=== PATIENT | male | born 1965 | race Caucasian/White ===

== ENCOUNTER 2017-04-08 18:18 | Emergency (ER) | payer OTHER ==
[2017-04-08 18:33] VITALS: BP 149/93; PULSE 112; RESP 20; TEMP 98.1
[2017-04-08] MEDS ORDERED: SODIUM CHLORIDE 0.9% 1,000 ML IV ONE (19:09)
--- NOTE | 2017-04-08 19:44 | ED ---
Extremity Problem HPI - General Source: patient, RN notes reviewed Mode of arrival: ambulatory Limitations: no limitations <Sriram Montejo - Last Filed: 04/08/17 19:40> <Devin Mejia - Last Filed: 04/08/17 20:48> - General Chief complaint: Extremity Problem,Nontraumatic Stated complaint: left hip and foot pain Time Seen by Provider: 04/08/17 18:56 - History of Present Illness Initial comments: This a 51-year-old male presents emergency Department chief complaint of left leg pain. Patient states has been ongoing progressively gotten worse. Patient states she is concerned now as he has numbness to his lower leg primarily below his mid calf into his foot. Patient states that his is very painful to walk on also has noticed some discoloration to his foot. Patient states she was concerned about possible infection or other problems so he went to [facility] and was sent here to rule out blood clot. Patient states he is diabetic but states he only controls with diet states his blood sugar was elevated at [facility] states that he ate just prior to this. Patient states he also smoker but was told by the physician there that he could have some vascular disease caused by his smoking. Patient denies any current back issues no trauma denies any abdominal pain. Patient has no chest pain no dizziness or nausea vomiting. (Sriram Montejo) - Related Data Home Medications Medication Instructions Recorded Confirmed Acetaminophen Tab [Tylenol Tab] 500 mg PO ONCE PRN 04/08/17 04/08/17 Previous Rx's Medication Instructions Recorded Acetaminophen with Codeine 1 tab PO Q4H #30 tab 04/08/17 [Tylenol w/codeine #3] Aspirin 325 mg PO DAILY #30 tab 04/08/17 Allergies Allergy/AdvReac Type Severity Reaction Status Date / Time Penicillins Allergy Unknown Verified 04/08/17 19:11 steroids Allergy Rash/Hives Uncoded 04/08/17 18:34 Review of Systems ROS Other: All systems not noted in ROS Statement are negative. <Sriram Montejo - Last Filed: 04/08/17 19:40> ROS Other: All systems not noted in ROS Statement are negative. <Devin Mejia - Last Filed: 04/08/17 20:48> ROS Statement: Those systems with pertinent positive or pertinent negative responses have been documented in the HPI. Past Medical History Past Medical History: Diabetes Mellitus History of Any Multi-Drug Resistant Organisms: None Reported Past Surgical History: No Surgical Hx Reported Past Psychological History: No Psychological Hx Reported Smoking Status: Current every day smoker Past Alcohol Use History: None Reported Past Drug Use History: None Reported <AdinaSriram fletcher - Last Filed: 04/08/17 19:40> General Exam Limitations: no limitations General appearance: alert, in no apparent distress Head exam: Present: atraumatic, normocephalic, normal inspection Respiratory exam: Present: normal lung sounds bilaterally. Absent: respiratory distress, wheezes, rales, rhonchi, stridor Cardiovascular Exam: Present: regular rate, normal rhythm, normal heart sounds. Absent: systolic murmur, diastolic murmur, rubs, gallop, clicks Extremities exam: Present: other (Left lower extremity there is a faint pedal pulse one plus dorsal. House confirmed with Doppler patient has cord tumors feet slightly cool or to his left leg now proportion both legs have essentially no hair or patient reports this is from being electrocuted there is a non- blanchable erythematous petechial type rash to his feet worse through the digits patient has equal strength of lower extremities bilaterally 5/5) Back exam: Present: full ROM. Absent: tenderness Neurological exam: Present: alert, oriented X3, CN II-XII intact, reflexes normal. Absent: motor sensory deficit Skin exam: Present: warm, dry <NikiaSriram Jillian - Last Filed: 04/08/17 19:40> Medical Decision Making <Sriram Montejo - Last Filed: 04/08/17 19:40> - Lab Data Result diagrams: 04/08/17 19:32 04/08/17 19:32 <Devin Mejia - Last Filed: 04/08/17 20:48> - Medical Decision Making 51-year-old male past medical history of hypertension diabetes and daily smoker. I did evaluate the patient and completed bilateral pulses exam. Patient has normal pulse exam in the right lower extremity. Left lower extremity is palpable femoral, popliteal popliteal, signal at the DP and TP pulses. Patient's symptoms have been worsening over the past few weeks. He has been sleeping with his feet in a position to alleviate some of the symptoms. He does report claudication symptoms in the left buttock for the past 8 months beginning last July. Bilateral lower extremities are warm with cap refill. Case is discussed with the vascular surgeon Dr. Galindo, patient will be given Tylenol 3 for pain control at the patient's request, as well as instructed take full-strength aspirin. He will follow-up with vascular surgery in 3 days. Diagnosis: Chronic limb ischemia with claudication (Devin Mejia) - Lab Data Lab Results 04/08/17 04/08/17 Range/Units 19:32 19:32 WBC 8.5 (3.8-10.6) k/uL RBC 5.58 (4.30-5.90) m/uL Hgb 17.7 H (13.0-17.5) gm/dL Hct 51.6 (39.0-53.0) % MCV 92.6 (80.0-100.0) fL MCH 31.8 (25.0-35.0) pg MCHC 34.4 (31.0-37.0) g/dL RDW 14.4 (11.5-15.5) % Plt Count 279 (150-450) k/uL Neutrophils % 62 % Lymphocytes % 28 % Monocytes % 5 % Eosinophils % 3 % Basophils % 1 % Neutrophils # 5.3 (1.3-7.7) k/uL Lymphocytes # 2.4 (1.0-4.8) k/uL Monocytes # 0.4 (0-1.0) k/uL Eosinophils # 0.2 (0-0.7) k/uL Basophils # 0.0 (0-0.2) k/uL Sodium 136 L (137-145) mmol/L Potassium 5.0 (3.5-5.1) mmol/L Chloride 104 (98-107) mmol/L Carbon Dioxide 21 L (22-30) mmol/L Anion Gap 11 mmol/L BUN 12 (9-20) mg/dL Creatinine 0.61 L (0.66-1.25) mg/dL Est GFR (MDRD) Af Amer >60 (>60 ml/min/1.73 sqM) Est GFR (MDRD) Non-Af >60 (>60 ml/min/1.73 sqM) Glucose 243 H (74-99) mg/dL Calcium 9.3 (8.4-10.2) mg/dL Total Bilirubin 0.7 (0.2-1.3) mg/dL AST 42 (17-59) U/L ALT 50 (21-72) U/L Alkaline Phosphatase 109 (38-126) U/L Total Protein 8.1 (6.3-8.2) g/dL Albumin 4.5 (3.5-5.0) g/dL Acetone, Qual Negative (Negative) Disposition <Sriram Montejo - Last Filed: 04/08/17 19:40> <Devin Mejia - Last Filed: 04/08/17 20:48> Clinical Impression: Claudication in peripheral vascular disease Disposition: HOME SELF-CARE Condition: Good Prescriptions: Acetaminophen with Codeine [Tylenol w/codeine #3] 1 tab PO Q4H #30 tab Aspirin 325 mg PO DAILY #30 tab Referrals: Alexsander Johnson MD [Primary Care Provider] - 1-2 days Lance Galindo MD [STAFF PHYSICIAN] - 1-2 days
[2017-04-08 19:49] LABS: Basophils % (A) 1 %; CH 32.3; CHCM 35.1; Eosinophils # (A) 0.2 k/uL (0-0.7); Eosinophils % (A) 3 %; HCT 51.6 % (39.0-53.0); HDW 2.61; HGB 17.7 gm/dL (13.0-17.5); Luc # (Auto) 0.16; Luc % (Auto) 2; Lymphocytes # (A) 2.4 k/uL (1.0-4.8); Lymphocytes % (A) 28 %; MCH 31.8 pg (25.0-35.0); MCHC 34.4 g/dL (31.0-37.0); MCV 92.6 fL (80.0-100.0); Mean Platelet Volume 8.1; Monocytes # (A) 0.4 k/uL (0-1.0); Monocytes % (A) 5 %; Neutrophils # (A) 5.3 k/uL (1.3-7.7); Neutrophils % (A) 62 %; RBC 5.58 m/uL (4.30-5.90); RDW 14.4 % (11.5-15.5); WBC 8.5 k/uL (3.8-10.6); WBC (Perox) 8.43
[2017-04-08 20:19] LABS: ALT 50 U/L (21-72); AST 42 U/L (17-59); Alkaline Phosphatase 109 U/L (38-126); Anion Gap 11 mmol/L; Blood Urea Nitrogen 12 mg/dL (9-20); Calcium 9.3 mg/dL (8.4-10.2); Carbon Dioxide 21 mmol/L (22-30); Chloride 104 mmol/L (98-107); Glucose 243 mg/dL (74-99); Non-African American GFR(MDRD) >60 (>60 ml/min/1.73 sqM); Sodium 136 mmol/L (137-145); Total Bilirubin 0.7 mg/dL (0.2-1.3); Total Protein 8.1 g/dL (6.3-8.2)
--- NOTE | 2017-04-08 20:27 | US ---
EXAMINATION TYPE: US venous doppler duplex LE LT DATE OF EXAM: 04/08/2017 7:09 PM COMPARISON: NONE CLINICAL HISTORY: Pain. SIDE PERFORMED: Left TECHNIQUE: The lower extremity deep venous system is examined utilizing real time linear array sonog ofelia with graded compression, doppler sonography and color-flow sonography. VESSELS IMAGED: External Iliac Vein (EIV) Common Femoral Vein Deep Femoral Vein Greater Saphenous Vein * Femoral Vein Popliteal Vein Small Saphenous Vein * Proximal Calf Veins (* superficial vessels) Left Leg: Negative for DVT IMPRESSION: Normal exam. No evidence of deep venous thrombosis in the left leg.
== END 2017-04-08 21:10 | disposition home or self-care (01) ==
LOC: EC 18:18
DX: I87.8 Other specified disorders of veins (principal); F17.200 Nicotine dependence, unspecified, uncomplicated; Z88.0 Allergy status to penicillin
CPT/HCPCS: 36415; 80053; 82009; 85025; 96360; 96361; 99284

== ENCOUNTER 2017-06-01 14:50 | Observation (INO) | payer OTHER ==
[2017-06-01] MEDS ORDERED: NITROGLYCERIN SL TABS 0.4 MG TAB SUBLINGUAL STA (15:22)
[2017-06-01] MEDS ORDERED: SODIUM CHLORIDE 0.9% 1,000 ML IV STA (15:22)
[2017-06-01] MEDS ORDERED: ASPIRIN 81 MG PO STA (15:22)
--- NOTE | 2017-06-01 15:26 | ED ---
General Adult HPI - General Chief complaint: Chest Pain Stated complaint: Chest Pain Time Seen by Provider: 06/01/17 15:13 Source: patient, RN notes reviewed, old records reviewed Mode of arrival: wheelchair Limitations: no limitations - History of Present Illness Initial comments: 51-year-old male with history of peripheral vascular disease, long time smoker, diabetic, hypertensive presenting with anterior chest pressure and pain. Patient states this pain began approximately 45 minutes prior to arrival. Pain is currently resolving. Patient states he didn't need two hotdogs and he believes this may be indigestion. She did report some nausea and diaphoresis. Patient states the pain radiated to his back. This is currently resolved. Patient had recent lower extremity stenting for peripheral vascular disease approximately 6 weeks ago. - Related Data Home Medications Medication Instructions Recorded Confirmed Aspirin 81 mg PO DAILY 06/01/17 06/01/17 Atorvastatin [Lipitor] 40 mg PO HS 06/01/17 06/01/17 Clopidogrel [Plavix] 75 mg PO HS 06/01/17 06/01/17 Furosemide [Lasix] 20 mg PO DAILY 06/01/17 06/01/17 Glimepiride [Amaryl] 2 mg PO HS 06/01/17 06/01/17 HYDROcodone/APAP 5-325MG [[place] 1 tab PO TID PRN 06/01/17 06/01/17 5-325] Metoprolol Tartrate [Lopressor] 25 mg PO BID 06/01/17 06/01/17 Pregabalin [Lyrica] 100 mg PO HS 06/01/17 06/01/17 metFORMIN HCL [Glucophage] 1,000 mg PO QAM 06/01/17 06/01/17 metFORMIN HCL [Glucophage] 500 mg PO HS 06/01/17 06/01/17 Allergies Allergy/AdvReac Type Severity Reaction Status Date / Time Penicillins Allergy Syncope Verified 06/01/17 16:12 steroids Allergy Rash/Hives Uncoded 06/01/17 14:55 Review of Systems ROS Statement: Those systems with pertinent positive or pertinent negative responses have been documented in the HPI. ROS Other: All systems not noted in ROS Statement are negative. Past Medical History Past Medical History: Diabetes Mellitus, Hypertension History of Any Multi-Drug Resistant Organisms: None Reported Past Surgical History: Heart Catheterization With Stent, Orthopedic Surgery Past Psychological History: No Psychological Hx Reported Smoking Status: Former smoker Past Alcohol Use History: Rare Past Drug Use History: None Reported General Exam Limitations: no limitations General appearance: alert, in no apparent distress Head exam: Present: atraumatic, normocephalic Eye exam: Present: normal appearance, PERRL ENT exam: Present: normal exam Neck exam: Present: normal inspection. Absent: tenderness Respiratory exam: Present: normal lung sounds bilaterally. Absent: respiratory distress Cardiovascular Exam: Present: regular rate, normal rhythm GI/Abdominal exam: Present: soft. Absent: distended, tenderness Extremities exam: Present: normal inspection, normal capillary refill Neurological exam: Present: alert, oriented X3, CN II-XII intact. Absent: motor sensory deficit Psychiatric exam: Present: normal affect, normal mood Skin exam: Present: warm, dry, intact Course Vital Signs 06/01/17 06/01/17 06/01/17 14:55 16:48 17:07 Temperature 97.5 F L 98.4 F Pulse Rate 85 84 78 Respiratory 18 18 18 Rate Blood Pressure 121/73 125/77 156/87 O2 Sat by Pulse 99 98 100 Oximetry EKG Findings - EKG Comments: EKG Findings:: EKG shows normal sinus rhythm, ventricular rate of 88, WI interval 150, castration 82, QTC 423, no ST segment elevation or depression Medical Decision Making - Medical Decision Making 51-year-old hypertensive, smoker who recently quit 6 weeks ago, diabetic presents with chest pain. This was substernal chest pain and pressure. Didn't radiate to his back. Pain was improving at the time of arrival. Patient did receive aspirin nitroglycerin. At the time of my reevaluation he was chest pain -free. EKG is nonischemic. Chest x-ray shows no acute findings. Laboratory studies and: CBC, CMP and troponin are unremarkable. Patient is extremely high risk for coronary artery disease. He had recent operation of his right lower extremity for peripheral vascular disease at [facility]. Patient did indicate that he had some testing of his heart. I was able to obtain the records from [facility] there was a dobutamine stress echo from 04/12/2017. He did have a normal ejection fraction with no wall motion abnormalities. This test was negative for ischemia. Patient had no chest pain at the time of this evaluation. This was a test for surgical clearance. Given his risk factors and chest pain and I do think the patient would benefit from serial troponins and cardiology evaluation. Diagnosis: Chest pain - Lab Data Result diagrams: 06/01/17 15:13 06/01/17 15:13 Lab Results 06/01/17 06/01/17 06/01/17 Range/Units 15:13 15:13 15:13 WBC 5.7 (3.8-10.6) k/uL RBC 4.55 (4.30-5.90) m/uL Hgb 14.3 D (13.0-17.5) gm/dL Hct 42.6 (39.0-53.0) % MCV 93.6 (80.0-100.0) fL MCH 31.5 (25.0-35.0) pg MCHC 33.7 (31.0-37.0) g/dL RDW 13.7 (11.5-15.5) % Plt Count 286 (150-450) k/uL Neutrophils % 59 % Lymphocytes % 26 % Monocytes % 8 % Eosinophils % 3 % Basophils % 0 % Neutrophils # 3.4 (1.3-7.7) k/uL Lymphocytes # 1.5 (1.0-4.8) k/uL Monocytes # 0.5 (0-1.0) k/uL Eosinophils # 0.2 (0-0.7) k/uL Basophils # 0.0 (0-0.2) k/uL PT (9.0-12.0) sec INR (<1.2) APTT (22.0-30.0) sec Sodium 140 (137-145) mmol/L Potassium 4.3 (3.5-5.1) mmol/L Chloride 101 (98-107) mmol/L Carbon Dioxide 24 (22-30) mmol/L Anion Gap 15 mmol/L BUN 16 (9-20) mg/dL Creatinine 0.90 (0.66-1.25) mg/dL Est GFR (MDRD) Af Amer >60 (>60 ml/min/1.73 sqM) Est GFR (MDRD) Non-Af >60 (>60 ml/min/1.73 sqM) Glucose 176 H (74-99) mg/dL Calcium 9.5 (8.4-10.2) mg/dL Magnesium 1.8 (1.6-2.3) mg/dL Total Bilirubin 0.4 (0.2-1.3) mg/dL AST 28 (17-59) U/L ALT 47 (21-72) U/L Alkaline Phosphatase 110 (38-126) U/L Total Creatine Kinase 41 L (55-170) U/L CK-MB (CK-2) 0.6 (0.0-2.4) ng/mL CK-MB (CK-2) Rel Index 1.5 Troponin I <0.012 (0.000-0.034) ng/mL NT-Pro-B Natriuret Pep pg/mL Total Protein 7.6 (6.3-8.2) g/dL Albumin 4.3 (3.5-5.0) g/dL Lipase (23-300) U/L 06/01/17 06/01/17 06/01/17 Range/Units 15:13 15:13 15:13 WBC (3.8-10.6) k/uL RBC (4.30-5.90) m/uL Hgb (13.0-17.5) gm/dL Hct (39.0-53.0) % MCV (80.0-100.0) fL MCH (25.0-35.0) pg MCHC (31.0-37.0) g/dL RDW (11.5-15.5) % Plt Count (150-450) k/uL Neutrophils % % Lymphocytes % % Monocytes % % Eosinophils % % Basophils % % Neutrophils # (1.3-7.7) k/uL Lymphocytes # (1.0-4.8) k/uL Monocytes # (0-1.0) k/uL Eosinophils # (0-0.7) k/uL Basophils # (0-0.2) k/uL PT 10.3 (9.0-12.0) sec INR 1.0 (<1.2) APTT 23.3 (22.0-30.0) sec Sodium (137-145) mmol/L Potassium (3.5-5.1) mmol/L Chloride (98-107) mmol/L Carbon Dioxide (22-30) mmol/L Anion Gap mmol/L BUN (9-20) mg/dL Creatinine (0.66-1.25) mg/dL Est GFR (MDRD) Af Amer (>60 ml/min/1.73 sqM) Est GFR (MDRD) Non-Af (>60 ml/min/1.73 sqM) Glucose (74-99) mg/dL Calcium (8.4-10.2) mg/dL Magnesium (1.6-2.3) mg/dL Total Bilirubin (0.2-1.3) mg/dL AST (17-59) U/L ALT (21-72) U/L Alkaline Phosphatase (38-126) U/L Total Creatine Kinase (55-170) U/L CK-MB (CK-2) (0.0-2.4) ng/mL CK-MB (CK-2) Rel Index Troponin I (0.000-0.034) ng/mL NT-Pro-B Natriuret Pep 22 pg/mL Total Protein (6.3-8.2) g/dL Albumin (3.5-5.0) g/dL Lipase 127 (23-300) U/L Disposition Clinical Impression: Chest pain Disposition: ADMITTED IP TO THIS [facility] Condition: Stable Referrals: Alexsander Johnson MD [Primary Care Provider] - 1-2 days Decision to Admit Reason: Admit from EC Decision Date: 06/01/17 Decision Time: 17:32
[2017-06-01 15:54] LABS: Basophils % (A) 0 %; CHCM 33.3; Eosinophils # (A) 0.2 k/uL (0-0.7); Eosinophils % (A) 3 %; HCT 42.6 % (39.0-53.0); HDW 2.98; Luc # (Auto) 0.17; Luc % (Auto) 3; Lymphocytes # (A) 1.5 k/uL (1.0-4.8); Lymphocytes % (A) 26 %; MCH 31.5 pg (25.0-35.0); MCHC 33.7 g/dL (31.0-37.0); MCV 93.6 fL (80.0-100.0); Monocytes # (A) 0.5 k/uL (0-1.0); Monocytes % (A) 8 %; Neutrophils # (A) 3.4 k/uL (1.3-7.7); Neutrophils % (A) 59 %; RBC 4.55 m/uL (4.30-5.90); RDW 13.7 % (11.5-15.5); WBC 5.7 k/uL (3.8-10.6); WBC (Perox) 5.68
[2017-06-01 15:59] LABS: HGB 14.3 gm/dL (13.0-17.5)
--- NOTE | 2017-06-01 16:00 | XR ---
EXAMINATION TYPE: XR chest 2V DATE OF EXAM: 06/01/2017 COMPARISON: NONE TECHNIQUE: PA and lateral views submitted. HISTORY: Chest pain FINDINGS: The lungs are clear and there is no pneumothorax, pleural effusion, or focal pneumonia. Biapical pl eural thickening. No overt failure. Hyperinflation suggests COPD. IMPRESSION: 1. No acute process.
[2017-06-01 16:04] LABS: ALT 47 U/L (21-72); AST 28 U/L (17-59); Alkaline Phosphatase 110 U/L (38-126); Anion Gap 15 mmol/L; Blood Urea Nitrogen 16 mg/dL (9-20); Calcium 9.5 mg/dL (8.4-10.2); Carbon Dioxide 24 mmol/L (22-30); Chloride 101 mmol/L (98-107); Glucose 176 mg/dL (74-99); Magnesium 1.8 mg/dL (1.6-2.3); Non-African American GFR(MDRD) >60 (>60 ml/min/1.73 sqM); Partial Thromboplastin Time 23.3 sec (22.0-30.0); Potassium 4.3 mmol/L (3.5-5.1); Prothrombin Time 10.3 sec (9.0-12.0); Sodium 140 mmol/L (137-145); Total Bilirubin 0.4 mg/dL (0.2-1.3); Total Protein 7.6 g/dL (6.3-8.2)
[2017-06-01 16:16] LABS: Creatine Kinase 41 U/L (55-170)
[2017-06-01 16:30] LABS: Creatine Kinase MB 0.6 ng/mL (0.0-2.4); Troponin I <0.012 ng/mL (0.000-0.034)
[2017-06-01] MEDS ORDERED: ONDANSETRON 4 MG/2 ML VIAL IVP PRN (17:24)
[2017-06-01] MEDS ORDERED: ACETAMINOPHEN TAB 325 MG TAB PO PRN (17:24)
[2017-06-01] MEDS ORDERED: MORPHINE SULFATE 4 MG/ML SYRINGE IV PRN (17:24)
[2017-06-01] MEDS ORDERED: NALOXONE 0.4 MG/ML 1 ML VIAL IV PRN (17:24)
[2017-06-01] MEDS ORDERED: ALPRAZolam 0.25 MG TAB PO PRN (19:10)
[2017-06-01] MEDS ORDERED: TEMAZEPAM 15 MG CAP PO PRN (19:10)
--- NOTE | 2017-06-01 19:41 | HP ---
HISTORY AND PHYSICAL DATE OF SERVICE: 06/01/2017 CHIEF COMPLAINT: Chest pain. HISTORY OF PRESENT ILLNESS: This 51-year-old gentleman with a past medical history of multiple medical problems, including diabetes mellitus, hypertension, history of CAD and stent, history of nicotine dependence, is being followed by Dr. Johnson in the outpatient setting. He has been smoking up to 2 packs of cigarettes per day. Patient recently was evaluated by [facility] for peripheral vascular disease and underwent stent placement in the left femoral area. The patient today apparently had 2 chili dogs, and subsequently the patient had chest pressure, mild to moderate, felt in the anterior part of the chest radiating to the back. The patient came to [facility] and was admitted for further evaluation and treatment. The patient took some Pepto-Bismol, with some relief of the pain. There is no history of any fever, rigor or chills. No history of headache, loss of consciousness, seizures at this time. The patient apparently also had a stress test in [facility]. PAST MEDICAL HISTORY: 1. History of diabetes mellitus. 2. Hypertension. 3. History of CAD with stent. 4. History of recent peripheral vascular disease and surgery at [facility], as mentioned earlier. MEDICATIONS: 1. Amaryl 2 mg at bedtime. 2. Lasix 20 mg daily. 3. Glucophage 500 mg at bedtime. 4. Lyrica 100 mg p.o. at bedtime. 5. Hydrocodone 5 mg t.i.d. p.r.n. 6. Lopressor 25 mg b.i.d. 7. Plavix 75 mg at bedtime. 8. Glucophage 1000 mg each morning. 9. Lipitor 40 mg at bedtime. 10.Aspirin 81 mg daily. ALLERGIES: PENICILLIN AND STEROIDS. FAMILY HISTORY: No history of heart disease or strokes in the family. SOCIAL HISTORY: History of smoking until recently 2 packs per day. No history of alcohol intake. REVIEW OF SYSTEMS: ENT: No diminished hearing. No diminished vision. CARDIOVASCULAR SYSTEM: As mentioned earlier. RESPIRATORY SYSTEM: No cough, hemoptysis. GI: As mentioned earlier. : No dysuria or retention. NERVOUS SYSTEM: No numbness, weakness. ALLERGY/IMMUNOLOGY: No asthma, hayfever. MUSCULOSKELETAL: As mentioned earlier. HEMATOLOGY/ONCOLOGY: No history of anemia. ENDOCRINE: Diabetes mellitus. CONSTITUTIONAL: As mentioned earlier. DERMATOLOGY: Negative. RHEUMATOLOGY: Negative. PSYCHIATRY: As mentioned earlier. PHYSICAL EXAMINATION: Patient is alert, oriented x3. The pulse is 76, blood pressure 170/81, respiration 18, temperature 97.6, pulse ox 100% on room air. HEENT: Conjunctivae normal. NECK: No jugular venous distention. CARDIOVASCULAR: S1, S2 muffled. RESPIRATORY: Breath sounds diminished at the bases. No rhonchi. No crackles. ABDOMEN: Soft, nontender. No mass palpable. No hepatosplenomegaly. LEGS: No edema. No swelling. NERVOUS SYSTEM: Higher functions as mentioned earlier. Moves all 4 limbs. No focal motor or sensory deficit. LYMPHATICS: No lymph node palpable in neck, axillae or groin. SKIN: No ulcer, rash, bleeding. LABS: CBC within normal limits. PT is 10.3. Glucose 176. Creatine kinase 41. ASSESSMENT: 1. Chest pain for evaluation. Rule out coronary artery disease. 2. Possible gastroesophageal reflux disease. 3. Diabetes mellitus, type 2. 4. Hypertension. 5. Coronary artery disease with stent. 6. History of nicotine dependence. RECOMMENDATIONS AND DISCUSSION: In this 51-year-old gentleman who presented with multiple complex medical issues, we will monitor the patient closely, continue the current medications, continue symptomatic treatment. Rule out acute coronary syndrome. I would also recommend a cardiology evaluation and D-dimer also. If D-dimer is positive, recommend spiral CT scan of the chest also. Prognosis guarded. Further recommendations to follow. A copy of this dictation is being forwarded to Dr. Johnson in the outpatient setting. The patient is currently not smoking. Continue the rest of the medications. See orders for further details. MMODL / IJN: [id number] /
[2017-06-01 20:14] LABS: Glucose,Whole Blood 140 mg/dL (75-99)
[2017-06-01] MEDS: METOPROLOL TARTRATE 25 MG TAB PO SCH (20:22)
[2017-06-01] MEDS: PANTOPRAZOLE 40 MG/10 ML VIAL IVP SCH (20:22)
[2017-06-01] MEDS ORDERED: CLOPIDOGREL 75 MG TAB PO SCH (21:00)
[2017-06-01] MEDS ORDERED: metFORMIN 500 MG TAB PO SCH (21:00)
[2017-06-01] MEDS ORDERED: PREGABALIN 100 MG CAP PO SCH (21:00)
[2017-06-01] MEDS ORDERED: ATORVASTATIN 40 MG TAB PO SCH (21:00)
[2017-06-01] MEDS ORDERED: GLIMEPIRIDE 1 MG TAB PO SCH (21:00)
[2017-06-01 21:30] LABS: Creatine Kinase 33 U/L (55-170)
[2017-06-01 21:43] LABS: Creatine Kinase MB 0.5 ng/mL (0.0-2.4); Troponin I <0.012 ng/mL (0.000-0.034)
[2017-06-02 05:28] LABS: Basophils % (A) 1 %; CH 31.7; CHCM 33.9; Eosinophils # (A) 0.2 k/uL (0-0.7); Eosinophils % (A) 3 %; HCT 40.3 % (39.0-53.0); HDW 2.92; HGB 13.5 gm/dL (13.0-17.5); Luc # (Auto) 0.13; Luc % (Auto) 2; Lymphocytes # (A) 1.7 k/uL (1.0-4.8); Lymphocytes % (A) 28 %; MCH 31.5 pg (25.0-35.0); MCHC 33.5 g/dL (31.0-37.0); Mean Platelet Volume 7.7; Monocytes # (A) 0.5 k/uL (0-1.0); Monocytes % (A) 8 %; Neutrophils # (A) 3.5 k/uL (1.3-7.7); Neutrophils % (A) 58 %; RBC 4.29 m/uL (4.30-5.90); RDW 14.5 % (11.5-15.5); WBC 5.9 k/uL (3.8-10.6); WBC (Perox) 6.29
[2017-06-02 05:37] LABS: ALT 50 U/L (21-72); AST 21 U/L (17-59); Alkaline Phosphatase 96 U/L (38-126); Anion Gap 10 mmol/L; Blood Urea Nitrogen 15 mg/dL (9-20); Calcium 9.3 mg/dL (8.4-10.2); Carbon Dioxide 26 mmol/L (22-30); Chloride 105 mmol/L (98-107); Glucose 81 mg/dL (74-99); Non-African American GFR(MDRD) >60 (>60 ml/min/1.73 sqM); Sodium 141 mmol/L (137-145); Total Bilirubin 0.4 mg/dL (0.2-1.3); Total Protein 6.7 g/dL (6.3-8.2)
[2017-06-02 05:47] LABS: Creatine Kinase 28 U/L (55-170)
[2017-06-02 06:01] LABS: Creatine Kinase MB 0.5 ng/mL (0.0-2.4); Troponin I <0.012 ng/mL (0.000-0.034)
[2017-06-02 07:02] LABS: Glucose,Whole Blood 92 mg/dL (75-99)
[2017-06-02 08:34] VITALS: RESP 16
[2017-06-02] MEDS ORDERED: ASPIRIN 81 MG PO SCH (09:00)
[2017-06-02] MEDS ORDERED: FUROSEMIDE 20 MG TAB PO SCH (09:00)
[2017-06-02] MEDS ORDERED: RX INFO: IV CONTRAST WAS GIVEN 1 EACH MISC MISCELLANE PRN (09:32)
--- NOTE | 2017-06-02 11:08 | CT ---
EXAMINATION TYPE: CT angio chest DATE OF EXAM: 06/02/2017 10:59 AM COMPARISON: NONE HISTORY: Elevated d dimer CT DLP: 266.6 mGycm Automated exposure control for dose reduction was used. CONTRAST: CTA scan of the thorax is performed with IV Contrast, patient injected with 100 mL of Omnipaque 350, pulmonary embolism protocol. . FINDINGS: The lungs are clear. There is no significant axillary adenopathy. There is nonspecific jm opathy in the aortopulmonary window and pretracheal regions. Largest lymph node measures 11 mm. There is also some subcentimeter hilar adenopathy bilaterally. There is no evidence of pulmonary embolus. The aorta is normal in size without evidence of dissection. There is no pleural or pericardial fluid. The heart is not enlarged. Visualized upper abdominal structures are normal. IMPRESSION 1. THIS EXAMINATION IS NEGATIVE FOR PULMONARY EMBOLUS. 2. NONSPECIFIC MEDIASTINAL ADENOPATHY.
--- NOTE | 2017-06-02 11:15 | CONS ---
CONSULTATION Mr. Carrero is a 51-year-old male with a history of severe peripheral vascular disease, status post recent revascularization done at [facility]. No history of cardiac disease who presented with symptoms of chest discomfort. He had 2 chili dogs and subsequently had chest discomfort, came into the emergency room and subsequently admitted. He is pain-free at this time and his discomfort improved after taking Pepto- Bismol. He denies any symptoms of exertional chest pain. He has no significant dyspnea on exertion. No dizziness. No palpitation. He has some peripheral edema. No clear PND or orthopnea. He had severe intermittent claudication that improved after revascularization of his lower extremity at [facility]. He has underwent a dobutamine stress echocardiogram on April 12 of this year that revealed a normal ventricular size and systolic function with no evidence of stress induced ischemia. The patient was told at [facility] that he has no cardiac abnormalities. His coronary risks factors are remarkable for prior history of smoking, which she stopped recently. He is diabetic, hyperlipidemic. No documented history of hypertension. MEDICATIONS: His medications at home include glimepiride 2 mg daily, furosemide 20 mg daily, metformin 500 mg daily, Lyrica, metoprolol tartrate 25 mg twice a day, Plavix 75 mg daily, metformin 1 gram daily, Lipitor 40 mg daily, and aspirin once a day. REVIEW OF SYSTEMS: RESPIRATORY SYSTEM: He denies any recent wheezing or cough. He had a prior history of smoking, which he stopped. GI SYSTEM: No recent GI bleed. No peptic ulcer disease. SYSTEM: No dysuria or hematuria. NERVOUS SYSTEM: No stroke or seizure. PHYSICAL EXAMINATION: A 51-year-old male, alert and oriented in no apparent distress. Blood pressure 111/60 with the heart rate in the 90s. HEAD: Normocephalic. EYES: Sclerae anicteric. NECK: Good carotid upstroke. No bruit. No jugular venous distention. LUNGS: Clear to auscultation. HEART: Regular rate and rhythm. S1, S2. No S3 with systolic murmur 1/6 early peaking ejection type heard at the base. ABDOMEN: Soft, nontender. Positive bowel sounds. No organomegaly. EXTREMITIES: No edema. Scar noted in the left groin with good femoral and dorsalis pedis pulse. The extremities are warm. LAB DATA: Lab data revealed troponin less than 0.012. BUN and creatinine of 15 and 0.9. Potassium 4.0. Hemoglobin of 13.5. EKG revealed a sinus mechanism with normal axis and intervals. No acute changes. Chest x-ray reveals no acute infiltrate. IMPRESSION: 1. Chest discomfort, atypical for ischemic heart disease, appears to be gastrointestinal in origin. 2. History of peripheral vascular disease. 3. Recent normal stress dobutamine echocardiogram. 4. Prior history of smoking. 5. Diabetes. 6. Hyperlipidemia. RECOMMENDATION: From the cardiac standpoint, he is stable. No further cardiac workup will be needed. He will follow with his primary care physician. He is scheduled to undergo a CT angiogram of the chest because of D dimer of 1.16, although clinically he has no signs to suggest pulmonary embolism. Thank you for this consult. We will see him on as needed basis. AZEEM / CLARE: [id number] / MTDD
[2017-06-02] MEDS: PANTOPRAZOLE 40 MG/10 ML VIAL IVP SCH (11:16)
[2017-06-02] MEDS: METOPROLOL TARTRATE 25 MG TAB PO SCH (11:17)
[2017-06-02 12:00] LABS: Glucose,Whole Blood 267 mg/dL (75-99)
[2017-06-02 12:29] VITALS: BP 106/73; PULSE 91; TEMP 97.6
--- NOTE | 2017-06-02 18:21 | P.DS ---
Providers Date of admission: 06/01/17 17:24 Attending physician: Anne Nieto Consults: 06/01/17 17:25 Consult Physician Urgent Consulting Provider: Tavo Kauffman Consult Reason/Comments: Chest pain Do you want consulting provider notified?: Yes, Notify in am Primary care physician: Elizabeth Arellano [facility] Course: This 51-year-old gentleman with a past medical history multiple medical problems was admitted chest pain radiating the back. Myocardial infarction ruled out. The patient had normal cardiac enzymes. Treated symptomatically. Improved significantly. Patient recently had cardiac stress test from elsewhere. Which was negative. Patient also had recent surgery for [facility]. Cardiology saw the patient and the cleared the patient for discharge. Patient be discharged in a stable condition with guarded prognosis. Patient is recommended to follow up closely with the primary physician and cardiology. The patient understands and agrees. On exam vitals stable. Cardio S1 and S2 normal. Spelled system clear to auscultation. Abdomen soft nontender. Nervous system no focal lucent. Final diagnoses 1. Chest pain possibly GERD medical function ruled out. 2. Diabetes was type II. 4. Recent negative stress test. 4. Hypertension. 5. History of CAD stent. 6. History of for recent the vascular surgery. 7. History and nicotine dependence. Patient Condition at Discharge: Stable Plan - Discharge Summary New Discharge Prescriptions: New Pantoprazole [Protonix] 40 mg PO DAILY #30 tablet.dr Continue metFORMIN HCL [Glucophage] 500 mg PO HS Pregabalin [Lyrica] 100 mg PO HS HYDROcodone/APAP 5-325MG [[place] 5-325] 1 tab PO TID PRN PRN Reason: Pain Metoprolol Tartrate [Lopressor] 25 mg PO BID Clopidogrel [Plavix] 75 mg PO HS metFORMIN HCL [Glucophage] 1,000 mg PO QAM Atorvastatin [Lipitor] 40 mg PO HS Aspirin 81 mg PO DAILY Glimepiride [Amaryl] 2 mg PO HS Furosemide [Lasix] 20 mg PO DAILY Discharge Medication List Aspirin 81 mg PO DAILY 06/01/17 [History] Atorvastatin [Lipitor] 40 mg PO HS 06/01/17 [History] Clopidogrel [Plavix] 75 mg PO HS 06/01/17 [History] Furosemide [Lasix] 20 mg PO DAILY 06/01/17 [History] Glimepiride [Amaryl] 2 mg PO HS 06/01/17 [History] HYDROcodone/APAP 5-325MG [[place] 5-325] 1 tab PO TID PRN 06/01/17 [History] Metoprolol Tartrate [Lopressor] 25 mg PO BID 06/01/17 [History] Pregabalin [Lyrica] 100 mg PO HS 06/01/17 [History] metFORMIN HCL [Glucophage] 1,000 mg PO QAM 06/01/17 [History] metFORMIN HCL [Glucophage] 500 mg PO HS 06/01/17 [History] Pantoprazole [Protonix] 40 mg PO DAILY #30 tablet. 06/02/17 [Rx] Follow up Appointment(s)/Referral(s): Alexsander Johnson MD [Primary Care Provider] - 1-2 days Patient Instructions/Handouts: Chest Pain (DC) Activity/Diet/Wound Care/Special Instructions: diet cardiac act limited till f/u Discharge Disposition: HOME SELF-CARE
== END 2017-06-02 15:39 | disposition home or self-care (01) ==
LOC: EC 14:50 → 3OBS 17:24
PROVIDERS: ADMIT Hospitalist; ATTEND Hospitalist
DX: R07.89 Other chest pain (principal); R11.0 Nausea; R60.0 Localized edema; R61 Generalized hyperhidrosis; E11.51 Type 2 diabetes mellitus with diabetic peripheral angiopathy without gangrene; E78.5 Hyperlipidemia, unspecified; I10 Essential (primary) hypertension; I25.10 Atherosclerotic heart disease of native coronary artery without angina pectoris; Z79.82 Long term (current) use of aspirin; Z79.899 Other long term (current) drug therapy; Z79.84 Long term (current) use of oral hypoglycemic drugs; Z79.02 Long term (current) use of antithrombotics/antiplatelets; Z88.0 Allergy status to penicillin; Z88.8 Allergy status to other drugs, medicaments and biological substances; Z95.5 Presence of coronary angioplasty implant and graft; Z95.820 Peripheral vascular angioplasty status with implants and grafts; Z87.891 Personal history of nicotine dependence
CPT/HCPCS: 96361 ×5; 93005 ×2; 96374; 96376; 99285; 36415; 85379; 83880; 80053 ×2; 82550 ×2; 82553 ×2; 83690; 83735; 84484 ×2; 85025 ×2; 85610; 85730; 71020; 71275; G0378 ×2; Q9967; C9113 ×2

== ENCOUNTER 2018-04-01 07:54 | Day surgery (SDC) | payer OTHER ==
[2018-03-27 12:15] VITALS: BMI 28.8
[~2018-04-01 07:54] MED LIST: LACTATED RINGERS 1,000 ML IV SCH; LIDOCAINE 1% 20 ML VIAL (10MG/ML) FOR IV START INTRADERMA PRN
[2018-04-01 08:27] VITALS: TEMP 97.6
[2018-04-01] MEDS ORDERED: LACTATED RINGERS 1,000 ML IV ONE (08:27)
[2018-04-01 08:30] LABS: Glucose,Whole Blood 160 mg/dL (75-99)
[2018-04-01] MEDS ORDERED: PROPOFOL 10 MG/ML 20 ML VIAL IV ONE (08:46)
[2018-04-01] MEDS ORDERED: fentaNYL (PF) 50 MCG/ML 2 ML AMP ONE (08:46)
[2018-04-01] MEDS ORDERED: MIDAZOLAM 2 MG/2 ML VIAL ONE (08:46)
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
--- NOTE | 2018-04-01 09:10 | P.OP ---
Date of Procedure: 04/01/18 Preoperative Diagnosis: Screening colonoscopy Postoperative Diagnosis: Diverticulosis Procedure(s) Performed: Colonoscopy Anesthesia: MAC Surgeon: Zechariah Myers Pathology: other Condition: stable Disposition: PACU Description of Procedure: The patient's placed on the endoscopy table in the lateral position. He received IV sedation. Digital rectal exam was performed which revealed no abnormalities. Flexible colonoscope was then placed patient anus passed rotator entire colon. The ileocecal valve was visualized. The cecum, ascending and transverse colon appeared normal. In the descending and sigmoid there was mild diverticulosis. Scope summer back the rectum this was normal. Scope withdrawn for patient.
[2018-04-01 09:20] VITALS: PULSE 77
[2018-04-01 09:45] VITALS: BP 117/78; RESP 18
== END 2018-04-01 09:47 | disposition home or self-care (01) ==
LOC: ORWHC2ENDO 07:54
PROVIDERS: ATTEND Surgery
DX: K57.30 Diverticulosis of large intestine without perforation or abscess without bleeding (principal); K59.00 Constipation, unspecified; E11.9 Type 2 diabetes mellitus without complications; E78.5 Hyperlipidemia, unspecified; I10 Essential (primary) hypertension; L40.9 Psoriasis, unspecified; M41.9 Scoliosis, unspecified; I73.9 Peripheral vascular disease, unspecified; Z95.820 Peripheral vascular angioplasty status with implants and grafts; Z79.84 Long term (current) use of oral hypoglycemic drugs; Z79.02 Long term (current) use of antithrombotics/antiplatelets; Z79.82 Long term (current) use of aspirin; Z79.899 Other long term (current) drug therapy; Z88.0 Allergy status to penicillin; Z88.8 Allergy status to other drugs, medicaments and biological substances; Z87.19 Personal history of other diseases of the digestive system; Z87.891 Personal history of nicotine dependence
CPT/HCPCS: 45378; J2250; J3010; J2704

== ENCOUNTER 2018-06-12 12:16 | Emergency (ER) | payer OTHER ==
[2018-06-12 12:25] VITALS: BP 132/82; PULSE 85; RESP 20; TEMP 97.6
[2018-06-12] MEDS ORDERED: DIPH,PERTUS(ACELL)TETVAC-LF 0.5 ML VIAL IM ONE (12:30)
--- NOTE | 2018-06-12 12:47 | XR ---
EXAMINATION TYPE: XR finger RT DATE OF EXAM: 06/12/2018 COMPARISON: NONE HISTORY: Laceration right thumb TECHNIQUE: Three views are submitted. FINDINGS: The osseous structures are intact. The joint spaces are preserved and there is no acute fracture or dislocation. Soft tissue injury first digit. IMPRESSION: 1. No definite acute fracture or dislocation if symptoms persist, follow-up study in 7 to 10 days wo uld be suggested
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
== END 2018-06-12 13:57 | disposition home or self-care (01) ==
LOC: EC 12:16
DX: S61.011A Laceration without foreign body of right thumb without damage to nail, initial encounter (principal); E78.5 Hyperlipidemia, unspecified; I10 Essential (primary) hypertension; E11.9 Type 2 diabetes mellitus without complications; I73.9 Peripheral vascular disease, unspecified; Z87.891 Personal history of nicotine dependence; Z88.0 Allergy status to penicillin; Z88.8 Allergy status to other drugs, medicaments and biological substances; Z79.02 Long term (current) use of antithrombotics/antiplatelets; Z79.82 Long term (current) use of aspirin; Z79.84 Long term (current) use of oral hypoglycemic drugs; Z79.899 Other long term (current) drug therapy; Z23 Encounter for immunization; Z95.828 Presence of other vascular implants and grafts; W45.8XXA Other foreign body or object entering through skin, initial encounter; Y93.89 Activity, other specified; Y92.89 Other specified places as the place of occurrence of the external cause
CPT/HCPCS: 12002; 90471; 90715; 99283

== ENCOUNTER → 2020-05-14 | Day surgery (SDC) | payer OTHER ==
[2020-05-12 11:52] VITALS: BMI 28.8
--- NOTE | 2020-05-13 09:19 | HP ---
HISTORY AND PHYSICAL CHIEF COMPLAINT: Left shoulder pain and stiffness. HISTORY OF PRESENT ILLNESS: Patient is a 54-year-old, right-hand dominant, retired male who presents with left shoulder pain and stiffness, worsened over the past several months. He denies any specific injury. He is having a difficult time with any overhead activity and at night. He tried therapy with minimal improvement. PAST MEDICAL HISTORY: Significant for peripheral vascular disease and type 2 diabetes. PAST SURGICAL HISTORY: Significant for previous left hand surgery. CURRENT MEDICATIONS: Plavix, aspirin, fenofibrate, metformin and metoprolol. ALLERGIES: PENICILLIN with sensitivity to STEROIDS. FAMILY HISTORY: Significant for heart disease and cancer. SOCIAL HISTORY: Significant for previous tobacco use; however, he quit in April of 2017. 16 POINT REVIEW OF SYSTEMS: Otherwise reviewed and is noncontributory. PHYSICAL EXAMINATION: On examination, the patient is approximately 5 foot 8, 190 pounds of endomorphic habitus. HEENT: Exam is nonfocal. NECK: Supple. He is tender about the left shoulder anterior subacromial space. He has mild subacromial crepitus. Active range of motion, forward elevation 80 degrees, external rotation with the arm side 20 degrees, internal rotation to the buttock. Passively able to forward elevate him to 90 degrees. Motor strength is 4/5 for abduction and external rotation. Impingement test, NEER test are positive. His distal neurovascular appears intact in the left upper extremity. IMPRESSION: 1. Left shoulder adhesive capsulitis. 2. Peripheral vascular disease. 3. Non-insulin dependent diabetes. RECOMMENDATIONS: I talked to the patient at length regarding his condition and treatment options. At this point, he is quite limited because of pain and stiffness. After thorough discussion, he opts to proceed with manipulation under anesthesia. We will likely perform that utilizing IV sedation and potentially will consider a subacromial cortisone injection. Risks and benefits were discussed at length in layman's terms. MMODL / IJN: [id number] /
[~2020-05-14] MED LIST changes: +INSULIN ASPART (NovoLOG) 100 UNIT/ML VIAL SQ ONE; +LIDOCAINE 1% (10MG/ML) FOR IV START INTRADERMA PRN; -LIDOCAINE 1% 20 ML VIAL (10MG/ML) FOR IV START INTRADERMA PRN; +ONDANSETRON 4 MG/2 ML VIAL ONE; +PROPOFOL 10 MG/ML 20 ML VIAL IV ONE; +Pre Op ABX Message 1 EACH MISC MISCELLANE ONE; +fentaNYL (PF) 50 MCG/ML 2 ML AMP ONE
[2020-05-14 10:52] LABS: Glucose,Whole Blood 301 mg/dL (75-99)
--- NOTE | 2020-05-14 11:32 | P.OP ---
Date of Procedure: 05/14/20 Preoperative Diagnosis: Left shoulder adhesive capsulitis Postoperative Diagnosis: Same Procedure(s) Performed: Manipulation left shoulder under anesthesia Anesthesia: MAC Surgeon: Pradeep Baer Estimated Blood Loss (ml): 0 Pathology: none sent Condition: stable Disposition: PACU Indications for Procedure: The patient's a 54-year-old male who presents with progressive left shoulder pain and stiffness despite conservative measures. Clinically he was noted to have evidence of significant adhesive capsulitis. A discussion of the risks and benefits of continued conservative measures versus manipulation under anesthesia was made with patient. He opted to proceed with that. Risks to include fracture, tendon rupture, recurrence of stiffness, possible need for subsequent procedures was discussed. Informed consent was obtained. Operative Findings: As below Description of Procedure: The patient was brought to the recovery room, and after induction of IV sedation the left shoulder was then gently manipulated. First with his arm at his side obtaining full external rotation. Moderate adhesions were encountered. I then obtained full forward elevation. Again there were moderate adhesions. I felt that I had adequate release of adhesions at this point. He was then monitored until fully awake. There was no blood loss. No complications were incurred.
[2020-05-14 11:39] VITALS: TEMP 1127
[2020-05-14 11:41] VITALS: RESP 16
[2020-05-14] MEDS: HYDROmorphone 0.5 MG/0.5 ML SYRINGE IVP PRN ×2 (11:51→11:57)
[2020-05-14 12:09] LABS: Glucose,Whole Blood 269 mg/dL (75-99)
[2020-05-14 12:47] LABS: Glucose,Whole Blood 233 mg/dL (75-99)
[2020-05-14 12:52] VITALS: BP 169/90; PULSE 87
== END | disposition home or self-care (01) ==
LOC: OR 10:04
PROVIDERS: ATTEND Orthopaedic Surgery
DX: M75.02 Adhesive capsulitis of left shoulder (principal); I73.9 Peripheral vascular disease, unspecified; E11.9 Type 2 diabetes mellitus without complications; K08.89 Other specified disorders of teeth and supporting structures; I10 Essential (primary) hypertension; E78.5 Hyperlipidemia, unspecified; K21.9 Gastro-esophageal reflux disease without esophagitis; R94.31 Abnormal electrocardiogram [ECG] [EKG]; Z88.0 Allergy status to penicillin; Z88.8 Allergy status to other drugs, medicaments and biological substances; Z98.890 Other specified postprocedural states; Z79.02 Long term (current) use of antithrombotics/antiplatelets; Z79.82 Long term (current) use of aspirin; Z79.899 Other long term (current) drug therapy; Z79.4 Long term (current) use of insulin; Z87.891 Personal history of nicotine dependence; Z82.49 Family history of ischemic heart disease and other diseases of the circulatory system; Z80.9 Family history of malignant neoplasm, unspecified
CPT/HCPCS: 23700; J3010; J2704; J1170

== ENCOUNTER → 2020-08-02 | Outpatient (CLI) | payer OTHER ==
--- NOTE | 2020-08-02 18:20 | MR ---
EXAMINATION TYPE: MR shoulder LT wo con DATE OF EXAM: 08/02/2020 COMPARISON: None HISTORY: Left shoulder pain TECHNIQUE: Multiplanar, multisequence imaging of the left shoulder is performed without contrast. FINDINGS: Rotator Cuff: No tendon or muscle retraction is evident. Muscle signal is normal without atrophy. No suspicious signal abnormality transversing the rotator cuff is evident. Minimal signal may be adjacen t to anterior and rotator cuff tendons suggestive for mild to moderate tendinosis. Acromioclavicular Joint: There is slight hypertrophy present. Glenohumeral Joint: There is joint space narrowing between the glenohumeral joint space. Labrum: Mild increased signals within the superior glenoid labrum may be some degenerative change or injury. There may be some change within the anterior inferior glenoid labrum. Biceps Tendon: The long head of biceps is in normal location within bicipital groove. Small amount fl uid is adjacent may be mild tendinosis. Bone marrow signal: No focal abnormal marrow signal is appreciated. Other: No additional significant abnormality is appreciated. IMPRESSION: Suspected mild to moderate tendinosis of the subscapularis supraspinatus and long head biceps tendon. 2. No suspicious rotator cuff tendon perforation or complete tear is evident
== END | disposition home or self-care (01) ==
LOC: RADMRIMAIN 13:21
PROVIDERS: ATTEND Orthopaedic Surgery
DX: M25.512 Pain in left shoulder (principal)

== ENCOUNTER → 2022-02-23 | Outpatient (CLI) | payer OTHER ==
[2022-02-23 14:09] LABS: Basophils # (A) 0.03 X 10*3/uL (0.00-0.10); Basophils % (A) 0.5 %; Eosinophils # (A) 0.12 X 10*3/uL (0.04-0.35); Eosinophils % (A) 2.1 %; HCT 45.5 % (39.6-50.0); HGB 14.9 g/dL (13.0-17.0); Immature Grans, Automated 0.2 %; Lymphocytes # (A) 1.41 X 10*3/uL (0.90-5.00); Lymphocytes % (A) 24.8 %; MCH 29.7 pg (27.0-32.0); MCHC 32.7 g/dL (32.0-37.0); MCV 90.8 fL (80.0-97.0); Mean Platelet Volume 10.8 fL (9.5-12.2); Monocytes # (A) 0.58 X 10*3/uL (0.20-1.00); Monocytes % (A) 10.2 %; NRBC Per 100 WBC 0 /100 WBCS (0.0-0.0); Neutrophils # (A) 3.54 X 10*3/uL (1.80-7.70); Neutrophils % (A) 62.2 %; Platelet Count 178 X 10*3/uL (140-440); RBC 5.01 X 10*6/uL (4.40-5.60); RDW 12.7 % (11.5-14.5); WBC 5.69 X 10*3/uL (4.50-10.00)
[2022-02-23 14:48] LABS: African American GFR (CKD) 115.4 (60.0-200.0); Albumin 4.7 g/dL (3.8-4.9); Albumin/Globulin Ratio 1.42 (1.60-3.17); Anion Gap 12.3 mmol/L (10.00-18.00); BUN/Creat Ratio 23.44 Ratio (12.00-20.00); Blood Urea Nitrogen 19.2 mg/dL (9.0-27.0); Calcium 9.6 mg/dL (8.7-10.3); Carbon Dioxide 25.7 mmol/L (20.0-27.5); Globulin 3.3 g/dL (1.6-3.3); HDL Cholesterol 28.7 mg/dL (40.00-60.00); Non-African American GFR(CKD) 99.6 (60.0-200.0); PSA Annual Screen 0.3 ng/mL (0.000-4.000); Potassium 4.8 mmol/L (3.5-5.5); Total Bilirubin 0.3 mg/dL (0.30-1.20)
[2022-02-23 14:49] LABS: T4, Free (Free Thyroxine) 0.95 ng/dL (0.800-1.800)
[2022-02-23 15:10] LABS: Chol/HDL Ratio 7.42 Ratio
== END | disposition home or self-care (01) ==
LOC: LABWHC1 07:58
PROVIDERS: ATTEND Family Medicine
DX: Z00.00 Encounter for general adult medical examination without abnormal findings (principal); Z11.59 Encounter for screening for other viral diseases; Z12.5 Encounter for screening for malignant neoplasm of prostate; E11.9 Type 2 diabetes mellitus without complications
CPT/HCPCS: 86803; 84439; 80061; 80053; 84443; 85025; 83721; 83036; 36415; G0103

== ENCOUNTER 2023-09-20 16:35 | Emergency (ER) | payer OTHER ==
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
[2023-09-20] MEDS ORDERED: ACETAMINOPHEN TAB 325 MG TAB PO STA (18:22)
[2023-09-20 18:46] VITALS: BP 135/79; PULSE 87; RESP 18; TEMP 98.4
== END 2023-09-20 18:39 | disposition home or self-care (01) ==
LOC: EC 16:35
DX: J32.9 Chronic sinusitis, unspecified (principal); J06.9 Acute upper respiratory infection, unspecified; E11.51 Type 2 diabetes mellitus with diabetic peripheral angiopathy without gangrene; I10 Essential (primary) hypertension; E78.5 Hyperlipidemia, unspecified; Z20.822 Contact with and (suspected) exposure to COVID-19; Z79.4 Long term (current) use of insulin; Z79.82 Long term (current) use of aspirin; Z79.899 Other long term (current) drug therapy; Z88.0 Allergy status to penicillin; Z88.8 Allergy status to other drugs, medicaments and biological substances; Z87.891 Personal history of nicotine dependence
CPT/HCPCS: 87636; 99284

== ENCOUNTER 2024-04-27 14:09 | Emergency (ER) | payer BC, OTHER ==
[2024-04-27 14:25] VITALS: BP 152/80; PULSE 107; RESP 16; TEMP 98
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
--- NOTE | 2024-04-27 16:12 | XR ---
EXAMINATION TYPE: XR elbow complete RT DATE OF EXAM: 04/27/2024 COMPARISON: None HISTORY: 58-year-old male pain after fall TECHNIQUE: AP, oblique, and lateral views FINDINGS: No joint effusion. No acute fracture, subluxation, dislocation. The 6 mm density projecting along the superficial aspect of the lateral aspect of the elbow. IMPRESSION: 1. 6 mm hyperdense material, probably external debris along the lateral aspect of the elbow. Clinical ly correlate. 2. No underlying acute osseous abnormality seen.
== END 2024-04-27 16:53 | disposition home or self-care (01) ==
LOC: EC 14:09
DX: S53.491A Other sprain of right elbow, initial encounter (principal); M25.531 Pain in right wrist; Z88.0 Allergy status to penicillin; Z88.8 Allergy status to other drugs, medicaments and biological substances; Z87.891 Personal history of nicotine dependence; W11.XXXA Fall on and from ladder, initial encounter
CPT/HCPCS: 99283

== ENCOUNTER → 2025-01-15 | Outpatient (CLI) | payer BC ==
[2025-01-15 15:13] LABS: Basophils # (A) 0.03 X 10*3/uL (0.00-0.10); Basophils % (A) 0.5 %; Eosinophils # (A) 0.19 X 10*3/uL (0.04-0.35); Eosinophils % (A) 3.1 %; HCT 49.3 % (39.6-50.0); HGB 16.8 g/dL (13.0-17.0); Lymphocytes # (A) 1.58 X 10*3/uL (0.90-5.00); Lymphocytes % (A) 25.7 %; MCH 30.6 pg (27.0-32.0); MCHC 34.1 g/dL (32.0-37.0); MCV 89.8 FL (80.0-97.0); Mean Platelet Volume 10.8 FL (9.5-12.2); Monocytes # (A) 0.52 X 10*3/uL (0.20-1.00); Monocytes % (A) 8.5 %; NRBC Per 100 WBC 0 X 10*3/uL (0.00-0.01); Neutrophils % (A) 61.9 %; Platelet Count 176 X 10*3/uL (140-440); RBC 5.49 X 10*6/uL (4.40-5.60); RDW 12.9 % (11.5-14.5); WBC 6.14 X 10*3/uL (4.50-10.00)
[2025-01-15 15:44] LABS: ALT 34 U/L (10-49); AST 30 U/L (14-35); Albumin 4.4 g/dL (3.8-4.9); Albumin/Globulin Ratio 1.38 Ratio (1.60-3.17); Alkaline Phosphatase 85 U/L (41-126); Blood Urea Nitrogen 16.2 mg/dL (9.0-27.0); Calcium 9.3 mg/dL (8.7-10.3); Carbon Dioxide 22.9 mmol/L (21.6-31.8); Chloride 102 mmol/L (96-109); Chol/HDL Ratio 7.06 Ratio; Creatine Kinase 62 U/L (35-257); Globulin 3.2 g/dL (1.6-3.3); Glucose 186 mg/dL (70-110); Potassium 4.2 mmol/L (3.5-5.5); Prostate Specific Antigen 0.39 ng/mL (0.000-3.500); Sodium 137 mmol/L (135-145); T4, Free (Free Thyroxine) 0.95 ng/dL (0.80-1.80); Total Bilirubin 0.4 mg/dL (0.3-1.2); Total Protein 7.6 g/dL (6.2-8.2)
== END | disposition home or self-care (01) ==
LOC: LABWHC1 09:41
PROVIDERS: ATTEND Family Medicine
DX: Z00.00 Encounter for general adult medical examination without abnormal findings (principal); Z12.5 Encounter for screening for malignant neoplasm of prostate; I73.9 Peripheral vascular disease, unspecified; E78.2 Mixed hyperlipidemia
CPT/HCPCS: 36415; 80053; 80061; 82550; 83721; 84153; 84439; 84443; 85025